=== PATIENT | male | born 1970 | race Caucasian/White ===

== ENCOUNTER 2017-06-06 09:34 | Emergency (ER) | payer SELFPAY ==
[~2017-06-06] VITALS: Ht 162.6 cm; Wt 59.0 kg
[2017-06-06 09:39] VITALS: BP 121/83; PULSE 84; RESP 15; TEMP 98.2; O2SAT 98
[2017-06-06] MEDS ORDERED: LISI10TA3 PO (09:45)
--- NOTE | 2017-06-06 10:11 | PD ---
HPI Chief Complaint: Medical Clearance Time Seen by Provider: 09:54 Travel History International Travel<30 days: No Contact w/Intl Traveler<30days: No Traveled to known affect area: No History of Present Illness HPI This patient went to [facility] voluntarily to get detox for methamphetamine abuse. He is a cigarette smoker and for the last few days as had runny nose and a lot of congestion and wheezing. Because of his congestion they sent him here to get evaluated. He has no chest pain or fever. Symptoms severity is moderate. No alleviating factors. He did not use any drugs today. [facility] Social History Alcohol Use: No Tobacco Use: Yes Substance Use: No Allergies-Medications (Allergen,Severity, Reaction): Coded Allergies: No Known Allergies (Verified Allergy, Unknown, 06/06/17) Reported Meds & Prescriptions Reported Meds & Active Scripts Active Reported Lisinopril 10 Mg Tab 10 Mg PO DAILY Review of Systems General / Constitutional: No: Fever Eyes: No: Visual changes HENT: Positive: Rhinorrhea, Congestion, No: Headaches Cardiovascular: No: Chest Pain or Discomfort Respiratory: Positive: Wheezing, No: Shortness of Breath Gastrointestinal: No: Abdominal Pain Genitourinary: No: Dysuria Musculoskeletal: No: Pain Skin: No Rash Neurologic: No: Weakness Psychiatric: Positive: Substance Abuse, No: Depression Endocrine: No: Polydipsia Hematologic/Lymphatic: No: Easy Bruising Physical Exam Narrative GENERAL: Well-nourished, well-developed patient in no apparent distress. SKIN: Focused skin assessment reveals no rash and nodules. Skin is Warm and dry. HEAD: Atraumatic. Normocephalic. EYES: Pupils equal and round. No scleral icterus. No injection or drainage. ENT: No nasal bleeding or discharge. Mucous membranes pink and moist. NECK: Trachea midline. No JVD. CARDIOVASCULAR: Regular rate and rhythm. No murmur appreciated. RESPIRATORY: No accessory muscle use. Expiratory wheezing and diffuse rhonchi. Breath sounds equal bilaterally. GASTROINTESTINAL: Abdomen soft, non-tender, nondistended. Hepatic and splenic margins not palpable. MUSCULOSKELETAL: No obvious deformities. No clubbing. No cyanosis. No edema. NEUROLOGICAL: Awake and alert. No obvious cranial nerve deficits. Motor grossly within normal limits. Normal speech. PSYCHIATRIC: Appropriate mood and affect; insight and judgment normal. Data Data Last Documented VS Vital Signs Date Time Temp Pulse Resp B/P (MAP) Pulse Ox O2 Delivery O2 Flow Rate FiO2 06/06/17 09:39 98.2 84 15 121/83 (96) 98 Orders Orders Albuterol-Ipratropium Neb (Duoneb Neb) (06/06/17 10:15) Prednisone (Deltasone) (06/06/17 10:15) MDM Medical Decision Making Medical Screen Exam Complete: Yes Emergency Medical Condition: Yes Medical Record Reviewed: Yes Differential Diagnosis Bronchitis, asthma, URI Narrative Course I have reviewed the patient's electronic medical record. I gave him a nebulizer treatment Gave him a dose of prednisone On reassessment he is significantly improved. I prescribed him an inhaler and 5 days of prednisone He will need to quit smoking He has viral URI Diagnosis Primary Impression: Bronchospasm with bronchitis, acute Additional Instructions: The patient was advised to follow up with their physician and return if they worsen. Stop smoking Med/Other Pt SpecificInfo: Prescription(s) given Scripts Albuterol 18 GM Inh (Ventolin Hfa 18 GM Inh) 90 Mcg/Act Aer 2 PUFF INH Q4H Y for SHORTNESS OF BREATH, #1 INHALER 0 Refills Prov: Gabriel Wallace MD 06/06/17 Prednisone (Prednisone) 20 Mg Tab 20 MG PO DAILY for 5 Days, TAB 0 Refills Prov: Gabriel Wallace MD 06/06/17 Disposition: 01 DISCHARGE HOME Condition: Stable Gabriel Wallace MD Jun 06, 2017 10:11
[2017-06-06] MEDS ORDERED: predniSONE 20 MG TAB PO ONE (10:15)
[2017-06-06] MEDS ORDERED: RESP: ALBUTEROL 2.5 MG/IPRATROPIUM 0.5 MG NEB (SCH) NEB ONE (10:15)
[2017-06-06] MEDS ORDERED: VENTAER INH (11:49)
[2017-06-06] MEDS ORDERED: PRED20 PO (11:49)
== END 2017-06-06 12:51 | disposition home or self-care (01) ==
LOC: NEPD 09:34 → EDBD 09:34 → NEPD 12:51
DX: J20.9 Acute bronchitis, unspecified (principal); Z72.0 Tobacco use
CPT/HCPCS: 94664; 99284; J7512